=== PATIENT | male | born 1950 | race Caucasian/White ===

== ENCOUNTER 2016-08-13 12:19 | Outpatient (CLI) | payer MEDICARE | END 2016-08-13 12:20 | disposition home or self-care (01) | DX: N05.9 Unspecified nephritic syndrome with unspecified morphologic changes (principal); D70.9 Neutropenia, unspecified; T86.10 Unspecified complication of kidney transplant; D68.9 Coagulation defect, unspecified ==

== ENCOUNTER 2016-10-11 09:37 | Outpatient (CLI) | payer MEDICARE | END 2016-10-11 09:38 | disposition home or self-care (01) | DX: N05.9 Unspecified nephritic syndrome with unspecified morphologic changes (principal); D70.9 Neutropenia, unspecified; T86.10 Unspecified complication of kidney transplant; D68.9 Coagulation defect, unspecified ==

== ENCOUNTER 2019-09-19 14:25 | Outpatient (CLI) | payer MEDICARE, OTHER | END 2019-09-19 14:26 | disposition home or self-care (01) | LOC: COV 14:25 | PROVIDERS: ATTEND Family Medicine | DX: R05 Cough (principal); R50.9 Fever, unspecified | CPT/HCPCS: 81599 ==